=== PATIENT | female | born 1965 | race Caucasian/White ===

== ENCOUNTER 2017-01-30 17:26 | Emergency (ER) | payer MEDICARE ==
[2017-01-30 17:33] VITALS: BP 114/74
[2017-01-30] MEDS ORDERED: PREDNISONE 20 MG TABLET PO ONE (18:00)
[2017-01-30] MEDS ORDERED: FAMOTIDINE 20 MG TABLET PO ONE (18:00)
[2017-01-30] MEDS ORDERED: DIPHENHYDRAMINE HCL 50 MG CAPSULE PO ONE (18:00)
--- NOTE | 2017-01-30 18:05 | ER Document Report ---
ED Skin Rash/Insect Bite/Abscs - General Chief Complaint: Insect Bite Stated Complaint: POSSIBLE BUG BITE Time Seen by Provider: 01/30/17 17:47 Mode of Arrival: Ambulatory Information source: Patient Notes: 51-year-old female presents to ED for complaint of a bug bite on the left side of her neck yesterday. She states she is then developed a rash from head to toe since then. Breathing is even and unlabored. She states she does have a little scratch to her throat no swelling to her mouth or throat. Patient alert and oriented pupils equal react to light speech clear and speaks in complete sentences walks with a steady gait. TRAVEL OUTSIDE OF THE [place] IN LAST 30 DAYS: No - HPI Patient complains to provider of: Skin rash/lesion, Insect bite Onset: Yesterday Onset/Duration: Gradual Quality of pain: Burning Severity: Mild Pain Level: 1 Skin Character: Erythema, Rash Quality of rash: Itchy Identify cause: No Exacerbated by: Denies Relieved by: Denies Similar symptoms previously: No Recently seen / treated by doctor: No Past Medical History - General Information source: Patient - Social History Smoking Status: Former Smoker Cigarette use (# per day): No Chew tobacco use (# tins/day): No Smoking Education Provided: No Frequency of alcohol use: None Drug Abuse: None Occupation: Customer service Lives with: Family Family History: Arthritis, CAD, CVA, DM, Hyperlipidemia, Hypertension, Malignancy. denies: COPD, Thyroid Disfunction Patient has suicidal ideation: No Patient has homicidal ideation: No - Past Medical History Cardiac Medical History: Reports: Hx Coronary Artery Disease, Hx Heart Attack, Hx Hypercholesterolemia, Hx Hypertension Pulmonary Medical History: Reports: Hx Asthma, Hx Bronchitis, Hx Pneumonia EENT Medical History: Reports: None Neurological Medical History: Reports: Hx Cerebrovascular Accident, Hx Migraine , Other - Pseudoseizures Endocrine Medical History: Reports: Hx Diabetes Mellitus Type 2 Renal/ Medical History: Reports: Other - Endometriosis and fibroid uterus Malignancy Medical History: Reports: None GI Medical History: Reports: Hx Gastritis, Hx Gastroesophageal Reflux Disease, Hx Irritable Bowel, Hx Ulcer, Hx Colonoscopy, Hx Endoscopy Musculoskeltal Medical History: Reports None Skin Medical History: Reports None Psychiatric Medical History: Reports: None Traumatic Medical History: Reports: None Infectious Medical History: Reports: None Past Surgical History: Reports: Hx Breast Surgery - Lumpectomy, Hx Dilation and Curettage - 2, Hx Gastric Bypass Surgery - Y- Dundrum stomach pouch, Hx Gynecologic Surgery - Ovarian cyst multiple, Hx Hysterectomy Review of Systems - Review of Systems Constitutional: No symptoms reported EENT: No symptoms reported Cardiovascular: No symptoms reported Respiratory: No symptoms reported Gastrointestinal: No symptoms reported Genitourinary: No symptoms reported Female Genitourinary: No symptoms reported Musculoskeletal: No symptoms reported Skin: Rash Hematologic/Lymphatic: No symptoms reported Neurological/Psychological: No symptoms reported Physical Exam - Vital signs Vitals: Temp Pulse Resp BP Pulse Ox 99.2 F 73 16 114/74 98 01/30/17 17:30 01/30/17 17:30 01/30/17 17:30 01/30/17 17:30 01/30/17 17:30 Interpretation: Normal - General General appearance: Appears well, Alert - HEENT Head: Normocephalic, Atraumatic Eyes: Normal Pupils: PERRL - Respiratory Respiratory status: No respiratory distress Chest status: Nontender Breath sounds: Normal Chest palpation: Normal - Cardiovascular Rhythm: Regular Heart sounds: Normal auscultation Murmur: No - Abdominal Inspection: Normal Distension: No distension Bowel sounds: Normal Tenderness: Nontender Organomegaly: No organomegaly - Back Back: Normal, Nontender - Extremities General upper extremity: Normal inspection, Nontender, Normal color, Normal ROM , Normal temperature General lower extremity: Normal inspection, Nontender, Normal color, Normal ROM , Normal temperature, Normal weight bearing. No: Juliette's sign - Neurological Neuro grossly intact: Yes Cognition: Normal Orientation: AAOx4 [place] Coma Scale Eye Opening: Spontaneous [place] Coma Scale Verbal: Oriented [place] Coma Scale Motor: Obeys Commands [place] Coma Scale Total: 15 Speech: Normal Motor strength normal: LUE, RUE, LLE, RLE Sensory: Normal - Psychological Associated symptoms: Normal affect, Normal mood - Skin Skin Temperature: Warm Skin Moisture: Dry Skin Color: Normal Skin irregularity: Rash Location of irregularity: Neck, Abdomen, Chest, Back, Extremities Character of irregularity: Fine, Erythematous - very itchy Course - Re-evaluation Re-evalutation: 01/30/17 18:12 Patient treated with prednisone Benadryl and Pepcid. She will be discharged home with prescriptions for Pepcid and prednisone instructed to use Benadryl for her itching. Patient to follow-up with a outcomes manager or television analyzer. - Vital Signs Vital signs: Temp Pulse Resp BP Pulse Ox 99.2 F 73 16 114/74 98 01/30/17 17:30 01/30/17 17:30 01/30/17 17:30 01/30/17 17:30 01/30/17 17:30 Discharge - Discharge Clinical Impression: Allergic dermatitis Condition: Stable Disposition: HOME, SELF-CARE Instructions: Family Physicians / Practices Additional Instructions: ACUTE ALLERGIC REACTION: Your symptoms are due to an allergic reaction. Allergy can cause hives, swelling of the hands, feet, and face, hoarseness, and difficulty swallowing or breathing. It may be due to exposure to medication, animal dander, foods, infection, or insect bites. Medication is a common cause, even when prior use of this same medication caused no problems. Acute treatment may include adrenalin and antihistamines. Usually, the specific allergic agent can't be identified unless repeated episodes occur. Home treatment includes the following: (1) Stop any suspicious medications. This will be discussed with you. (2) Oral antihistamines for the next four to five days. Example, diphenhydramine (Benadryl) every four hours. (3) You may also use cimetidine (Tagamet), ranitidine (Zantac), or famotidine ( Pepcid) every four hours if diphenhydramine is not controlling itching and hives. (4) Avoid aspirin until the hives completely disappear. (5) Avoid hot baths or showers until the hives are completely gone. Call the doctor if faintness, difficulty swallowing, tightness in the chest , or wheezing occurs. STEROID MEDICATION: You have been given a medicine of the cortisone/steroid class. This medication is used to control inflammation or allergy. It is usually only given for a short period of time, until the acute process subsides. There are usually no side effects from short-term use of cortisone-like medications. Some persons feel an increased sense of well-being and are not sleepy at bedtime. Long-term use of cortisone medications is best avoided, unless required for a severe condition. If your condition does not remit, or relapses after the course of corticosteroid medication, you should consult your physician. ACID-SUPPRESSING MEDICATION: You have a prescription for medicine which reduces the stomach's secretion of acid. Examples include Zantac, Tagament, and Pepcid. These drugs are often used to allow healing of ulcers or esophagitis. They may be needed to prevent recurrence of ulcers in some patients, or to prevent damage from acid reflux in the esophagus. Take all medication as prescribed, even after the pain is gone. Regular antacids may be added as needed if you have symptoms while taking this medicine. These medications sometimes are prescribed for allergic reactions because they have anti-histaminic effects and relieve the rash and itching of the reaction. There are usually no side effects from this medication. But, in rare cases and particularly in the elderly, serious problems can occur. Contact your doctor if there is fever, rash, hallucinations, confusion, or unusual bruising. Contact your doctor at once if you develop lightheadedness, black or bloody stool, or bloody vomitus. USE OF DIPHENHYDRAMINE: The use of diphenhydramine (Benadryl) has been recommended to control allergic symptoms. The 25 mg strength is available over- the-counter, as well as the elixir. This antihistamine is used for many symptoms. It's useful for itching, watering eyes and nose, allergic swelling, hives, and insect stings. The medication can be repeated four times daily. Age Elixir (12.5 mg/tsp) 25 mg pill 2-3 yr 1/2 tsp 4-8 yr 1 tsp 9-14 yr 2 tsp one tab adult 1-2 tabs Antihistamines may cause drowsiness, especially with the first dose. Do not operate machinery or drive while under the effects of the medication. Do not combine the medication with alcohol, or with any other medication without talking to your doctor. FOLLOW-UP CARE: If you have been referred to a physician for follow-up care, call the physician s office for an appointment as you were instructed or within the next two days. If you experience worsening or a significant change in your symptoms, notify the physician immediately or return to the Emergency Department at any time for re-evaluation. Prescriptions: Famotidine [Pepcid 20 mg Tablet] 20 mg PO BID #12 tablet Prednisone [Deltasone 10 mg Tablet] 10 mg PO ASDIR PRN #21 tablet PRN Reason:
== END 2017-01-30 18:24 | disposition home or self-care (01) ==
LOC: ER 17:26
DX: L23.9 Allergic contact dermatitis, unspecified cause (principal); S10.96XA Insect bite of unspecified part of neck, initial encounter; W57.XXXA Bitten or stung by nonvenomous insect and other nonvenomous arthropods, initial encounter; Z87.891 Personal history of nicotine dependence
CPT/HCPCS: 99281; A9270 ×3; J7512

== ENCOUNTER 2017-03-26 11:06 | Emergency (ER) | payer MEDICARE ==
--- NOTE | 2017-03-26 11:19 | ER Document Report ---
ED Medical Screen (RME) - General Chief Complaint: Abdominal Pain Stated Complaint: ABDOMINAL PAIN Time Seen by Provider: 03/26/17 11:18 Notes: Patient says that she is been having pain in her right upper quadrant for the past 3 weeks. It is almost daily, all the time, including nighttime. It is worse with eating or drinking. Been nauseated but not vomiting. Has had diarrhea. No blood present. Has not had a fever. Patient has had her appendix and her gallbladder and uterus removed surgically. She also had a gastric procedure for weight reduction. And, she had a bleeding ulcer at that surgical site this past spring which caused considerable bleeding and needed to be cauterized. History of heart disease. History of stroke. Smokes cigarettes, does not drink alcohol. TRAVEL OUTSIDE OF THE [place] IN LAST 30 DAYS: No - Related Data Allergies/Adverse Reactions: adhesive Allergy (Verified 03/26/17 11:12) codeine Allergy (Verified 03/26/17 11:12) Past Medical History - Past Medical History Cardiac Medical History: Reports: Hx Coronary Artery Disease, Hx Heart Attack, Hx Hypercholesterolemia, Hx Hypertension Pulmonary Medical History: Reports: Hx Asthma, Hx Bronchitis, Hx Pneumonia Neurological Medical History: Reports: Hx Cerebrovascular Accident, Hx Migraine Endocrine Medical History: Reports: Hx Diabetes Mellitus Type 2 Renal/ Medical History: Denies: Hx Peritoneal Dialysis GI Medical History: Reports: Hx Gastritis, Hx Gastroesophageal Reflux Disease, Hx Irritable Bowel, Hx Ulcer, Hx Colonoscopy, Hx Endoscopy Past Surgical History: Reports: Hx Breast Surgery - Lumpectomy, Hx Dilation and Curettage - 2, Hx Gastric Bypass Surgery - Y- Dundrum stomach pouch, Hx Gynecologic Surgery - Ovarian cyst multiple, Hx Hysterectomy Physical Exam - Vital signs Vitals: Temp Pulse Resp BP Pulse Ox 98.6 F 77 16 116/81 100 03/26/17 11:10 03/26/17 11:10 03/26/17 11:10 03/26/17 11:10 03/26/17 11:10 Course - Vital Signs Vital signs: Temp Pulse Resp BP Pulse Ox 98.6 F 77 16 116/81 100 03/26/17 11:10 03/26/17 11:10 03/26/17 11:10 03/26/17 11:10 03/26/17 11:10
[2017-03-26 11:52] LABS: ABSOLUTE BASOPHILS # (AUTO) 0.1 10^3/uL (0.0-0.2); ABSOLUTE EOSINOPHILS # (AUTO) 0.2 10^3/uL (0.0-0.6); ABSOLUTE MONOCYTES (AUTO) 0.5 10^3/uL (0.1-1.4); BASOPHILS % (AUTO) 1.1 % (0-2); HEMATOCRIT 44.2 % (36.0-47.0); HGB HCT DIFFERENCE 0.8; LYMPHOCYTES % (AUTO) 29.5 % (13-45); MEAN CORPUSCULAR HEMOGLOBIN 31.4 pg (27.0-33.4); MEAN CORPUSCULAR VOLUME 92 fl (80-97); RED CELL DISTRIBUTION WIDTH 13.2 % (11.5-14.0); SEGMENTED NEUTROPHILS % (AUTO) 58.4 % (42-78); WHITE BLOOD COUNT 6.8 10^3/uL (4.0-10.5)
[2017-03-26 12:26] LABS: ALANINE AMINOTRANSFERASE 27 U/L (9-52); ALBUMIN 4.3 g/dL (3.5-5.0); ALKALINE PHOSPHATASE 97 U/L (38-126); ANION GAP 13 (5-19); ASPARTATE AMINO TRANSFERASE 17 U/L (14-36); BILIRUBIN,DIRECT 0.3 mg/dL (0.0-0.4); BILIRUBIN,TOTAL 0.5 mg/dL (0.2-1.3); BLOOD UREA NITROGEN 10 mg/dL (7-20); CARBON DIOXIDE 24 mmol/L (22-30); CHLORIDE 106 mmol/L (98-107); CREATININE RESULT 0.68 mg/dL (0.52-1.25); GLUCOSE 90 mg/dL (75-110); LIPASE 127.8 U/L (23-300); POTASSIUM 3.9 mmol/L (3.6-5.0); SODIUM 142.6 mmol/L (137-145); TOTAL PROTEIN 6.5 g/dL (6.3-8.2)
[2017-03-26 12:27] LABS: AMORPHOUS SEDIMENT,URINE TRACE /HPF; APPEARANCE,URINE SLIGHTLY-CLOUDY; BILIRUBIN,URINE NEGATIVE (NEGATIVE); GLUCOSE, URINE NEGATIVE (NEGATIVE); KETONES,URINE NEGATIVE (NEGATIVE); LEUKOCYTE ESTERASE,URINE NEGATIVE (NEGATIVE); NITRITE,URINE NEGATIVE (NEGATIVE); PROTEIN,URINE NEGATIVE (NEGATIVE); URINE SPECIFIC GRAVITY 1.014
[2017-03-26] MEDS ORDERED: MAG HYDROX/AL HYDROX/SIMETH SUSP 30 ML UDCUP PO ONE (14:00)
[2017-03-26] MEDS ORDERED: METOCLOPRAMIDE HCL ORAL SOLN 10 MG/10 ML UDCUP PO ONE (14:00)
[2017-03-26] MEDS ORDERED: LIDOCAINE 2% VISCOUS SOLN 20 ML UDCUP PO ONE (14:00)
--- NOTE | 2017-03-26 14:04 | ER Document Report ---
ED General - General Chief Complaint: Abdominal Pain Stated Complaint: ABDOMINAL PAIN Time Seen by Provider: 03/26/17 11:18 TRAVEL OUTSIDE OF THE [place] IN LAST 30 DAYS: No - Related Data Allergies/Adverse Reactions: adhesive Allergy (Verified 03/26/17 11:12) codeine Allergy (Verified 03/26/17 11:12) Home Medications: Current Home Medications Clopidogrel Bisulfate [Clopidogrel] 75 mg PO DAILY 03/26/17 [History] Famotidine 1 tab PO DAILY 03/26/17 [History] Folic Acid 1 tab PO DAILY 03/26/17 [History] Pantoprazole Sodium 40 mg PO BID 03/26/17 [History] Simvastatin 1 tab PO DAILY 03/26/17 [History] Sucralfate [Carafate 1 gm Tablet] 1 tab PO BID 03/26/17 [History] Topiramate 1 tab PO BID 03/26/17 [History] Tramadol HCl 1 tab PO QID 03/26/17 [History] Past Medical History - Social History Smoking Status: Current Every Day Smoker Frequency of alcohol use: None Drug Abuse: None Family History: Arthritis, CAD, CVA, DM, Hyperlipidemia, Hypertension, Malignancy. denies: COPD, Thyroid Disfunction Patient has suicidal ideation: No Patient has homicidal ideation: No - Past Medical History Cardiac Medical History: Reports: Hx Coronary Artery Disease, Hx Heart Attack, Hx Hypercholesterolemia, Hx Hypertension Pulmonary Medical History: Reports: Hx Asthma, Hx Bronchitis, Hx Pneumonia Neurological Medical History: Reports: Hx Cerebrovascular Accident, Hx Migraine Endocrine Medical History: Reports: Hx Diabetes Mellitus Type 2 Renal/ Medical History: Denies: Hx Peritoneal Dialysis GI Medical History: Reports: Hx Gastritis, Hx Gastroesophageal Reflux Disease, Hx Irritable Bowel, Hx Ulcer, Hx Colonoscopy, Hx Endoscopy Musculoskeltal Medical History: Reports Hx Arthritis Past Surgical History: Reports: Hx Appendectomy, Hx Breast Surgery - Lumpectomy , Hx Cholecystectomy, Hx Dilation and Curettage - 2, Hx Gastric Bypass Surgery - Y- Dundrum stomach pouch, Hx Gynecologic Surgery - Ovarian cyst multiple, Hx Hysterectomy Physical Exam - Vital signs Vitals: Temp Pulse Resp BP Pulse Ox 98.6 F 77 16 116/81 100 03/26/17 11:10 03/26/17 11:10 03/26/17 11:10 03/26/17 11:10 03/26/17 11:10 Course - Re-evaluation Re-evalutation: 03/26/17 15:35 The patient presents with abdominal pain without signs of peritonitis or other life-threatening or serious etiology. The patient appears stable for discharge and has been instructed to return immediately if the symptoms worsen in any way , or in 8-12hr if not improved for re-evaluation. The patient has been instructed to return if the symptoms worsen or change in any way. Patient with a history of gastric bypass with history of ulcer formation with food hurting her stomach at times each. Patient will be continued on a PPI we will add Bentyl Reglan and Carafate to her regimen explained to the patient that she would definitely need follow-up with a detective chief for further evaluation. Patient states understanding. Lab work does not show any critical pathology no signs of bleeding will discharge home. - Vital Signs Vital signs: Temp Pulse Resp BP Pulse Ox 98.4 F 64 18 112/76 99 03/26/17 14:16 03/26/17 14:16 03/26/17 14:16 03/26/17 14:16 03/26/17 14:16 - Laboratory Result Diagrams: 03/26/17 11:35 03/26/17 11:35 Laboratory results interpreted by me: 03/26/17 11:35 Urine Urobilinogen 2.0 H Discharge - Discharge Clinical Impression: Abdominal pain Qualifiers: Abdominal location: unspecified location Qualified Code(s): R10.9 - Unspecified abdominal pain Condition: Good Disposition: HOME, SELF-CARE Instructions: Abdominal Pain ([facility]), Gastritis ([facility]), Gastroenterology Additional Instructions: Take medication as prescribed. Return to the ER if symptoms worsen. Your laboratory values today do not show any signs of any significant pathology. I do believe your symptoms are coming from your stomach I do believe you will need another upper scope performed by GI specialist. We will help her symptoms with medication Bentyl Reglan and Carafate. Please take as prescribed. Return if symptoms worsen. Prescriptions: Dicyclomine HCl [Bentyl 20 mg Tablet] 20 mg PO QID #40 tablet Metoclopramide HCl [Reglan] 5 mg PO Q6 #30 tablet Sucralfate [Carafate 1 gm Tablet] 1 gm PO ACHS #120 tablet Forms: Return to Work
[2017-03-26 14:17] VITALS: BP 112/76
== END 2017-03-26 14:17 | disposition home or self-care (01) ==
LOC: ER 11:06
DX: R10.9 Unspecified abdominal pain (principal); Z98.84 Bariatric surgery status; Z79.899 Other long term (current) drug therapy
CPT/HCPCS: 99284; 36415; 83690; 85025; 80053; 81001; J3490; A9270